=== PATIENT | female | born 1945 ===

== ENCOUNTER 2022-11-21 07:14 | Emergency (ER) | payer OTHER ==
[~2022-11-21] VITALS: Ht 160 cm; Wt 85.7 kg
[~2022-11-21 07:14] MED LIST: COZAAR25 MG PO; HYDRODIURIL12.5 MG
[2022-11-21] MEDS ORDERED: ADULT LOW DOSE81 M1 PO (07:45)
== END 2022-11-21 12:45 | disposition home or self-care (01) ==
LOC: ER 07:14
DX: K29.70 Gastritis, unspecified, without bleeding (principal); I10 Essential (primary) hypertension